=== PATIENT | female | born 1965 | race Caucasian/White ===

== ENCOUNTER 2020-01-14 07:40 | Emergency (ER) | payer MEDICARE, MEDICAID, SELFPAY ==
[2020-01-14] VITALS (8 sets, daily range): BP systolic 92–137; BP diastolic 55–88; PULSE 70–94; RESP 16–17; TEMP 36.2; O2SAT 94–96; BMI 26.2
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
[2020-01-14 08:25] LABS: Mucous, Urine 0 SEEN /hpf (<or=2+)
--- NOTE | 2020-01-14 08:25 | CT_ITS ---
STUDY: CT BRAIN WITHOUT CONTRAST REASON FOR EXAM: Female, 54 years old. RAN OUT OF MEDS HASN''T BEEN SLEEPING. SUICIDAL THOUGHTS. DIARRHEA AND LOSS OF TASTE AND SMELL RADIATION DOSAGE (If Supplied By Facility): CTDIvol = ( 44.99 ) mGy, DLP = ( 796.11 ) mGycm TECHNIQUE: Transaxial CT imaging of the brain was performed without administration of intravenous contrast material. Individualized dose optimization techniques were used for this CT. COMPARISON: No relevant priors. FINDINGS: Normal soft tissue structures. There is hyperostosis frontalis internus. Normal size ventricles and extra-axial spaces for the patient''s age. Normal white matter tracts of the cerebral hemispheres. Normal basal ganglia and thalami. Normal brainstem. Normal cerebellum. There is no intracranial hemorrhage. There are no findings of an acute ischemic infarction. Normal visualized paranasal sinuses. CT/Brain/Head without Contrast IMPRESSION: Normal unenhanced CT scan of the brain. Electronically Signed: Miguel A Clark, at 8:41 EDT , Service support ,
[2020-01-14 08:27] LABS: Absolute Lymphocyte Count 2.13 X10^3/uL (0.83-4.51); Absolute Neutrophil Count 6.6 X10^3/uL (2.0-7.7); Basophil# 0.03 X10^3/uL; Basophil% 0.3 % (0-1); Color, Urine Yellow (Yellow); Eosinophil# 0.14 X10^3/uL; Eosinophils% 1.5 % (0-5); Glucose, Dipstick Normal (Normal); Hematocrit 48.5 % (37-47); Hemoglobin 15.7 g/dL (12.0-15.0); Ketone-Dipstick 50 mg/dl (Negative); Leukocyte Esterase-Dipstick 25 /ul (Negative); Lymphocyte # 2.13 X10^3/ul (4.0); Lymphocyte % 22.4 % (19-41); Mean Corp Hgb Conc 32.4 g/dL (32-36); Mean Corpuscular Hgb 29.6 pg (27.0-32.0); Mean Corpuscular Volume 91.3 fL (81-99); Mean Platelet Vol. 9.4 fl (6.2-12.0); Monocyte# 0.59 X10^3/uL; Monocyte% 6.2 % (0-10); NRBC Flagged by Analyzer 0 % (0-5); Neutrophil # 6.59 X10^3/uL (2.7-7.7); Neutrophil % 69.2 % (47-70); Nitrite-Dipstick Negative (Negative); Occult Blood-Urine 10 /ul (Negative); Platelet Count 451 K/mm3 (150-450); Protein-Dipstick 15 mg/dl (Negative); RBC Distribution Width SD 50.3 fl (35.1-43.9); Red Blood Count 5.31 M/mm3 (4.2-5.4); Specific Gravity, Urine 1.015 (1.002-1.030); Urine Bilirubin Dipstick Negative (Negative); Urine Clarity Sl. Cloudy (Clear); Urine Urobilinogen 1 mg/dl (Normal); White Blood Count 9.5 K/mm3 (4.4-11.0)
[2020-01-14 08:35] LABS: Squamous Epithelial Cells - UA 25-50 SEEN /hpf (5-10)
[2020-01-14 08:36] LABS: Red Blood Cells-Urine 0-5 SEEN /hpf (0-5); White Blood Cells 0-5 SEEN /hpf (0-5)
[2020-01-14 08:37] LABS: Bacteria 3+ /hpf (None Seen); Hyaline Cast 0-5 SEEN /lpf (0-5); Renal Epithelial Cells 0-5 SEEN /hpf (0-5)
[2020-01-14 08:38] LABS: Transitional Epithelial - Ur 0 SEEN /hpf (0-5)
[2020-01-14 08:53] LABS: Anion Gap 7 (5-15); BUN 7 mg/dL (7-18); BUN/Creat Ratio 8.9 RATIO (10-20); Calcium,Total 9.9 mg/dL (8.5-10.1); Chloride 103 mmol/L (98-107); Creatinine, Serum 0.79 mg/dL (0.55-1.02); EST Glomerular Filtration Rate 81 mL/min (>60); Est Glom Filt Rate - Afr Amer 97 mL/min (>60); Estimated Creatinine Clearance 63.64 ml/min; Glucose 102 mg/dL (74-106); Potassium 3.4 mmol/L (3.5-5.1); Sodium Level 137 mmol/L (136-145); Thyroid Stim Hormone (TSH) 1.38 uIU/mL (0.358-3.74)
[2020-01-14 09:10] LABS: Alcohol, Blood (Medical)-Serum < 3.0 mg/dL
[2020-01-14 09:53] LABS: Amphetamine Urine VISTA NEGATIVE (<1000 ng/mL); Barbiturate Urine VISTA NEGATIVE (< 200 ng/mL); Benzodiazepine Urine VISTA NEGATIVE (< 200 ng/mL); Cocaine Urine VISTA NEGATIVE (< 300 ng/mL); Ecstacy Urine VISTA NEGATIVE (< 500 ng/mL); Methadone Urine VISTA NEGATIVE (< 300 ng/mL); PCP Urine VISTA NEGATIVE (< 25 ng/mL); THC Urine VISTA NEGATIVE (< 50 ng/mL); Vista UDS pH Range 6
--- NOTE | 2020-01-14 10:02 | ED.RN ---
[facility] CONTACTED TO SEE THE PT
--- NOTE | 2020-01-14 10:09 | NURSING ---
chart faxed to crisis
--- NOTE | 2020-01-14 10:37 | CM.ED ---
Social Work Patient with insurance. Telephone call to crisis. Gisele. Gisele updated that plan is for social work to follow for placement. Team updated and agreeable to plan. Clinical information was not faxed to crisis. Kassandra Valle MSW, ARMAANS
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
--- NOTE | 2020-01-14 13:33 | CM.ED ---
Social Work Telephone call to [facility]. Referral made. Clinical information faxed. Thi reports to have open beds. Kassandra BUCKLEY, ARMAANS
--- NOTE | 2020-01-14 14:44 | CM.ED ---
Social Work [place] [facility]. Requesting for original pink slip to be faxed. Copy of pink slip faxed to [place] [facility]. Patient continues to be pending approval. Kassandra BUCKLEY, RYAN
--- NOTE | 2020-01-14 15:35 | CM.ED ---
Social Work Telephone call from [facility]. Unable to accept due to medical complexity. Telephone call to Radha Sahni. Clinical information faxed. Pending review. Kassandra Valle MSW, RYAN
--- NOTE | 2020-01-14 17:50 | CM.ED ---
Social Work Telephone call to Mery [facility] to follow up on referral, Radha. Radha reporting to have not received referral and that the fax machine has been down. Radha providing this social worker delinquency prevention with alternate fax number of: [phone]. Clinical information faxed again. Will continue to follow. Kassandra BUCKLEY, RYAN
--- NOTE | 2020-01-14 19:42 | ED.DCSUM_ITS ---
- ER Visit Summary Date of Service: 01/14/20 Chief Complaint: [] History of Present Illness: The patient is a 54 F [] Physical Examination: [] Test Results: [] Emergency Department Course and Treatment: Patient signed out to me pending placement. Patient is medically cleared. Patient evaluated by case management, patient accepted to [facility] under the service Dr. See. Treatment Plan: [] Disposition: Transfer to [facility] Impression: Acute psychosis This note was generated with Emergent[employer]ection dictation software. It may contain incorrect words, spelling, and punctuation that were not noted in review of the chart prior to signing ED Disposition - Plan for ED Patient: Disposition: Psychiatric Hospital or Unit Diagnosis: Schizophrenia, Acute psychosis Referrals: Care Physician,No Primary [Primary Care Provider] -
--- NOTE | 2020-01-14 19:54 | CM.ED ---
Social Work Telephone call from Radha Sahni. Patient has been accepted by Dr. See. Nurse to call report to: [phone]. Patient to admit to the [address] [place] [address]. [place] slip faxed to [facility]. Updated patient and medical team. Telephone call to patient daughter, Kristin to update on patient disposition. Kristin voicing understanding. Kassandra Valle CLOCK MAKER, MAX-S
[2020-01-15 00:20] VITALS: RESP 16
== END 2020-01-15 00:33 ==
PROVIDERS: Emergency Provider Emergency Medicine
DX: F20.9 Schizophrenia, unspecified (principal); F17.200 Nicotine dependence, unspecified, uncomplicated
CPT/HCPCS: 70450; 80048; 80307; 80320; 81001; 84443; 85025; 87635; 99284; G0480; U0003